=== PATIENT | female | born 1995 | race American Indian/Alaskan Native ===

== ENCOUNTER 2020-05-08 12:26 | Emergency (ER) | payer SELFPAY ==
--- NOTE | 2020-05-08 12:42 | Emergency Department Report ---
Blank Doc - Documentation Documentation: 24-year-old female that presents with worsening left sided abdominal pain and vomiting. Yesterday labs shows leukocytosis. This initial assessment/diagnostic orders/clinical plan/treatment(s) is/are subject to change based on patient's health status, clinical progression and re- assessment by fellow clinical providers in the ED. Further treatment and workup at subsequent clinical providers discretion. Patient/guardians urged not to elope from the ED as their condition may be serious if not clinically assessed and managed. Initial orders include: 1- Patient sent to MAIN ED for further evaluation and treatment 2- labs
[2020-05-08 13:12] LABS: Bilirubin,Urine SM (Negative); Blood,Urine NEG (Negative); Color,Urine Amber (Yellow); Mucus,Urine 3+ /HPF; RBC,Urine < 1.0 /HPF (0.0-6.0)
[2020-05-08 13:25] LABS: Ictotest,Urine Negative (Negative)
[2020-05-08 14:20] LABS: Hemoglobin 12.9 gm/dl (10.1-14.3); Mean Corpuscular HGB Conc 34 % (30-34); Mean Corpuscular Volume 71 fl (79-97); Platelet Count 238 K/mm3 (140-440); Red Blood Count 5.39 M/mm3 (3.65-5.03); Red Cell Distribution Width 18.4 % (13.2-15.2)
[2020-05-08 14:26] LABS: Alanine Aminotransferase 16 units/L (7-56); Albumin 4.9 g/dL (3.9-5); BUN/Creatinine Ratio 17; Blood Urea Nitrogen 12 mg/dL (7-17); Calcium 9.5 mg/dL (8.4-10.2); Hemolysis Index 6
[2020-05-08] MEDS ORDERED: ONDANSETRON 4 MG/2 ML INJ IV ONE (14:32)
[2020-05-08] MEDS ORDERED: D5W/0.9% NACL 1,000 ML IV SCH (15:00)
--- NOTE | 2020-05-08 15:47 | Emergency Department Report ---
ED General Adult HPI - General Chief complaint: Abdominal Pain Stated complaint: ABD PAIN PUI?: No Time Seen by Provider: 05/08/20 12:41 Source: patient, RN notes reviewed, old records reviewed Mode of arrival: Ambulatory Limitations: No Limitations - History of Present Illness Initial comments: The patient is a 24-year-old female. She has a history of recurrent undifferentiated abdominal pain. She occasionally consumes marijuana, and endorses secondhand exposure to marijuana. She was seen in this department yesterday with a complaint of abdominal pain. She was worked up and treated appropriately, and had a CT scan of the abdomen pelvis which was negative for acute pathology. She was discharged to follow-up, and indicated she was going to follow-up with a terra cotta setter, when her diffuse abdominal pain, nausea and vomiting became acutely symptomatic. Patient describes diffuse abdominal pain and cramping, nausea and vomiting. These episodes have been going on for a few years. To me, she denies abdominal surgeries. There is no complaint of headache, neck pain, chest pain, dysuria. She denies vaginal discharge and genital discomfort. In the emergency room, her symptoms were markedly improved with haloperidol, Valium, and Benadryl. At the moment, she is sleeping comfortably on her stretcher, and in no acute distress. -: Gradual Location: abdomen Severity scale (0 -10): 10 Quality: aching Consistency: intermittent Improves with: medication Worsens with: eating - Related Data Previous Rx's Medication Instructions Recorded Last Taken Type Ondansetron [Zofran Odt] 4 mg PO Q8HR #15 tab.rapdis 05/07/20 Unknown Rx Dicyclomine [Bentyl] 10 mg PO QID PRN #20 capsule 05/08/20 Unknown Rx Shelly Root [Shelly] 250 mg PO QID PRN #30 capsule 05/08/20 Unknown Rx Potassium Chloride 20 meq PO QDAY #15 packet 05/08/20 Unknown Rx Promethazine [Phenergan SUPPOS] 50 mg MO Q6H PRN #15 supp.rect 05/08/20 Unknown Rx Allergies Allergy/AdvReac Type Severity Reaction Status Date / Time metoclopramide [From Reglan] Allergy Unknown Verified 05/08/20 12:30 ED Review of Systems ROS: Stated complaint: ABD PAIN Other details as noted in HPI Constitutional: denies: fever, malaise Eyes: denies: eye discharge ENT: denies: epistaxis Respiratory: denies: cough Cardiovascular: denies: chest pain Gastrointestinal: abdominal pain, nausea, vomiting Genitourinary: denies: dysuria Musculoskeletal: as per HPI Skin: as per HPI Neurological: as per HPI Psychiatric: anxiety Hematological/Lymphatic: as per HPI ED Past Medical Hx - Past Medical History Hx Asthma: Yes Additional medical history: SPLENIC CYST - Surgical History Hx Cholecystectomy: Yes - Social History Smoking Status: Never Smoker Substance Use Type: None - Medications Home Medications: Home Medications Medication Instructions Recorded Confirmed Last Taken Type Ondansetron [Zofran Odt] 4 mg PO Q8HR #15 tab.rapdis 05/07/20 Unknown Rx Dicyclomine [Bentyl] 10 mg PO QID PRN #20 capsule 05/08/20 Unknown Rx Shelly Root [Shelly] 250 mg PO QID PRN #30 capsule 05/08/20 Unknown Rx Potassium Chloride 20 meq PO QDAY #15 packet 05/08/20 Unknown Rx Promethazine [Phenergan SUPPOS] 50 mg MO Q6H PRN #15 supp.rect 05/08/20 Unknown Rx ED Physical Exam - General Limitations: No Limitations General appearance: alert, anxious, in distress, obese - Head Head exam: Present: atraumatic, normocephalic - Eye Eye exam: Present: normal appearance, EOMI. Absent: nystagmus - ENT ENT exam: Present: normal exam, normal orophraynx, mucous membranes moist, normal external ear exam - Neck Neck exam: Present: normal inspection, full ROM. Absent: tenderness, meningismus - Respiratory Respiratory exam: Present: normal lung sounds bilaterally. Absent: respiratory distress - Cardiovascular Cardiovascular Exam: Present: regular rate, normal rhythm, normal heart sounds. Absent: bradycardia, tachycardia, irregular rhythm, systolic murmur, diastolic murmur, rubs, gallop - GI/Abdominal GI/Abdominal exam: Present: soft, normal bowel sounds. Absent: distended, tenderness, guarding, rebound, rigid, pulsatile mass - External exam: Present: normal external exam. Absent: erythema, swelling, le sions, lacerations, ecchymosis, bleeding Speculum exam: Present: normal speculum exam, other (Chaperoned by nurse Lily Mills). Absent: erythema, vaginal discharge, cervical discharge, vaginal bleeding, foreign body, tissue, laceration Bi-manual exam: Present: normal bi-manual exam. Absent: cervical motion tendernes, adnexal tenderness, adnexal mass - Extremities Exam Extremities exam: Present: normal inspection, full ROM, other (2+ pulses noted in the bilateral upper and lower extremities. There is no palpable cord. negative Homans sign. Muscular compartments are soft. The pelvis is stable.). Absent: pedal edema, calf tenderness - Back Exam Back exam: Present: normal inspection, full ROM. Absent: tenderness, CVA tenderness (R), CVA tenderness (L), paraspinal tenderness, vertebral tenderness - Neurological Exam Neurological exam: Present: alert, oriented X3, normal gait, other (No facial droop. Tongue midline. Extraocular movements intact bilaterally. Facial sensation intact to light touch in V1, V2, V3 distribution bilaterally. 5 and a 5 strength in 4 extremities. Sensation intact to light touch in 4 extremities.). Absent: motor sensory deficit - Psychiatric Psychiatric exam: Present: anxious - Skin Skin exam: Present: warm, dry, intact, normal color. Absent: rash ED Course Vital Signs 05/08/20 05/08/20 05/08/20 12:35 15:02 15:16 Temperature 98.2 F Pulse Rate 84 67 56 L Respiratory 22 13 14 Rate Blood Pressure 146/101 Blood Pressure 152/101 [Left] O2 Sat by Pulse 97 Oximetry 05/08/20 05/08/20 05/08/20 15:30 16:14 16:16 Temperature Pulse Rate 65 75 69 Respiratory 24 11 L 10 L Rate Blood Pressure 146/101 146/101 159/111 Blood Pressure [Left] O2 Sat by Pulse Oximetry 05/08/20 05/08/20 05/08/20 16:30 16:46 16:59 Temperature Pulse Rate 88 96 H Respiratory 28 H 24 18 Rate Blood Pressure 159/111 159/111 Blood Pressure [Left] O2 Sat by Pulse 99 100 100 Oximetry 05/08/20 05/08/20 05/08/20 17:00 17:16 17:30 Temperature Pulse Rate 67 73 66 Respiratory 20 23 31 H Rate Blood Pressure 149/113 149/113 149/113 Blood Pressure [Left] O2 Sat by Pulse 100 97 100 Oximetry 05/08/20 05/08/20 05/08/20 17:46 18:00 18:16 Temperature Pulse Rate 65 97 H Respiratory 8 L 16 Rate Blood Pressure 149/113 158/113 158/113 Blood Pressure [Left] O2 Sat by Pulse 100 100 99 Oximetry ED Medical Decision Making - Lab Data Result diagrams: 05/08/20 12:42 05/08/20 12:42 Vital Signs 05/08/20 05/08/20 12:35 15:02 Temperature 98.2 F Pulse Rate 84 67 Respiratory 22 13 Rate Blood Pressure 152/101 [Left] O2 Sat by Pulse 97 Oximetry Lab Results 05/08/20 05/08/20 05/08/20 Range/Units 12:42 12:42 12:48 WBC 12.9 H (4.5-11.0) K/mm3 RBC 5.39 H (3.65-5.03) M/mm3 Hgb 12.9 (10.1-14.3) gm/dl Hct 38.0 (30.3-42.9) % MCV 71 L (79-97) fl MCH 24 L (28-32) pg MCHC 34 (30-34) % RDW 18.4 H (13.2-15.2) % Plt Count 238 (140-440) K/mm3 Sodium 139 (137-145) mmol/L Potassium 3.2 L (3.6-5.0) mmol/L Chloride 99.2 (98-107) mmol/L Carbon Dioxide 23 (22-30) mmol/L Anion Gap 20 mmol/L BUN 12 (7-17) mg/dL Creatinine 0.7 (0.7-1.2) mg/dL Estimated GFR > 60 ml/min BUN/Creatinine Ratio 17 % Glucose 140 H (65-100) mg/dL Lactic Acid (0.7-2.0) mmol/L Calcium 9.5 (8.4-10.2) mg/dL Magnesium (1.7-2.3) mg/dL Total Bilirubin 2.00 H (0.1-1.2) mg/dL AST 22 (5-40) units/L ALT 16 (7-56) units/L Alkaline Phosphatase 64 (35-129) units/L Total Protein 7.9 (6.3-8.2) g/dL Albumin 4.9 (3.9-5) g/dL Albumin/Globulin Ratio 1.6 % Lipase 9 L (13-60) units/L Urine Color Fawn (Yellow) Urine Turbidity Clear (Clear) Urine pH 6.0 (5.0-7.0) Ur Specific [place] 1.041 H (1.003-1.030) Urine Protein 100 mg/dl (Negative) mg/dL Urine Glucose (UA) Neg (Negative) mg/dL Urine Ketones 20 (Negative) mg/dL Urine Blood Neg (Negative) Urine Nitrite Neg (Negative) Urine Bilirubin Sm (Negative) Urine Ictotest Negative (Negative) Urine Urobilinogen 4.0 (<2.0) mg/dL Ur Leukocyte Esterase Neg (Negative) Urine WBC (Auto) 3.0 (0.0-6.0) /HPF Urine RBC (Auto) < 1.0 (0.0-6.0) /HPF U Epithel Cells (Auto) 6.0 (0-13.0) /HPF Urine Mucus 3+ /HPF 05/08/20 05/08/20 Range/Units Unknown Unknown WBC (4.5-11.0) K/mm3 RBC (3.65-5.03) M/mm3 Hgb (10.1-14.3) gm/dl Hct (30.3-42.9) % MCV (79-97) fl MCH (28-32) pg MCHC (30-34) % RDW (13.2-15.2) % Plt Count (140-440) K/mm3 Sodium (137-145) mmol/L Potassium (3.6-5.0) mmol/L Chloride (98-107) mmol/L Carbon Dioxide (22-30) mmol/L Anion Gap mmol/L BUN (7-17) mg/dL Creatinine (0.7-1.2) mg/dL Estimated GFR ml/min BUN/Creatinine Ratio % Glucose (65-100) mg/dL Lactic Acid 1.70 (0.7-2.0) mmol/L Calcium (8.4-10.2) mg/dL Magnesium 2.00 (1.7-2.3) mg/dL Total Bilirubin (0.1-1.2) mg/dL AST (5-40) units/L ALT (7-56) units/L Alkaline Phosphatase (35-129) units/L Total Protein (6.3-8.2) g/dL Albumin (3.9-5) g/dL Albumin/Globulin Ratio % Lipase (13-60) units/L Urine Color (Yellow) Urine Turbidity (Clear) Urine pH (5.0-7.0) Ur Specific [place] (1.003-1.030) Urine Protein (Negative) mg/dL Urine Glucose (UA) (Negative) mg/dL Urine Ketones (Negative) mg/dL Urine Blood (Negative) Urine Nitrite (Negative) Urine Bilirubin (Negative) Urine Ictotest (Negative) Urine Urobilinogen (<2.0) mg/dL Ur Leukocyte Esterase (Negative) Urine WBC (Auto) (0.0-6.0) /HPF Urine RBC (Auto) (0.0-6.0) /HPF U Epithel Cells (Auto) (0-13.0) /HPF Urine Mucus /HPF - EKG Data -: EKG Interpreted by In EKG shows normal: sinus rhythm Rate: normal - EKG Data When compared to previous EKG there are: previous EKG unavailable 05/08/20 19:01 Sinus rhythm, 67 bpm, left axis deviation, left anterior fascicular block, high left ventricular voltage, abnormal EKG, not a STEMI - Radiology Data Radiology results: report reviewed, image reviewed Print Report Referring Physician: MIGUELINA BENNETT Patient Name: SUSI ABDI Date of : 1995 Sex: Female Report Date: 2020-05-07 Report Status: [place] [address] Cat Scan Report Signed Patient: SUSI ABDI MR#: [id number] : 1995 Acct:[id number] Age/Sex: 24 / F ADM Date: 05/07/20 Loc: ED Attending Dr: Ordering Physician: GUILLERMO AMATO Date of Service: 04/28 Procedure(s): CT abdomen pelvis w con Accession Number(s): [id number] cc: GUILLERMO AMATO CT ABDOMEN AND PELVIS WITH CONTRAST INDICATION / CLINICAL INFORMATION: MAIN: Left mid abdominal pain N/V/D Omnipaque 300 100ml. TECHNIQUE: Axial CT images were obtained through the abdomen and pelvis after 100 cc Omnipaque 300 milligrams percent IV contrast. All CT scans at this location are performed using CT dose reduction for ALARA by means of automated exposure control. COMPARISON: None available. FINDINGS: LOWER CHEST: No significant abnormality. LIVER: No significant abnormality. GALLBLADDER: Previous cholecystectomy BILE DUCTS: No significant abnormality. PANCREAS: No significant abnormality. SPLEEN: There is a 2 cm low density lesion in the medial aspect of the spleen, probably representing a small cyst. ADRENALS: No significant abnormality. RIGHT KIDNEY and URETER: No significant abnormality. LEFT KIDNEY and URETER: No significant abnormality. STOMACH and SMALL BOWEL: No significant abnormality. COLON: No significant abnormality. APPENDIX: No significant abnormality. PERITONEUM: Very small ventral wall defect. No free fluid. No free air. No fluid collection. LYMPH NODES: No significant adenopathy. AORTA and ARTERIES: No significant abnormality. IVC and VEINS: No significant abnormality. URINARY BLADDER: No significant abnormality. REPRODUCTIVE ORGANS: No significant abnormality. Involuting left ovarian cyst ADDITIONAL FINDINGS: None. SKELETAL SYSTEM: No significant abnormality. IMPRESSION: 1. Low density lesion within the spleen, probable splenic cyst recommend continued surveillance 2. Previous cholecystectomy Signer Name: German Perry MD Signed: 05/07/2020 3:20 PM Workstation Name: [id number] Transcribed By: WG Dictated By: German Perry MD Electronically Authenticated By: German Perry MD Signed Date/Time: 05/07/20 1520 DD/ 1515 TD/TT: - Medical Decision Making Differential diagnosis, including but not limited to: Cannabinoid hyperemesis syndrome, cyclic vomiting syndrome Assessment and plan: 24-year-old female presenting with recurrent nausea and vomiting, alleviated by haloperidol, Benadryl, and Ativan. She is afebrile, with reassuring vital signs, with a soft and benign abdominal examination. Her vomiting has resolved at this time. Her gynecologic examination is benign. She had a CT scan of the abdomen pelvis yesterday which was negative for acute pathology. Suspect cyclic vomiting syndrome with possible superimposed cannabinoid hyperemesis syndrome. Advised patient to discontinue marijuana consumption and secondhand exposure. She can be discharged with as needed nausea medicine, she will need to follow-up with outpatient gastroenterology, we will also discharge her with potassium supplementation. Critical care attestation.: If time is entered above; I have spent that time in minutes in the direct care of this critically ill patient, excluding procedure time. ED Disposition Clinical Impression: History of abdominal pain, History of nausea and vomiting, Hypokalemia Disposition: DC-01 TO HOME OR SELFCARE Is pt being admited?: No Does the pt Need Aspirin: No Condition: Stable Additional Instructions: Avoid consumption/minimize consumption of Motrin, ibuprofen, Naprosyn, Aleve, heavy, spicy foods. Suspect that patient is experiencing cannabinoid hyperemesis syndrome. Recommend that patient avoid all exposure and consumption of marijuana, and marijuana related products. Patient is most likely experiencing adverse events from marijuana exposure and/or utilization. Marijuana products may remain in body tissues for up to 3 to 6 weeks, so it may take a few weeks for patient's symptoms to resolve. Use the Zofran prescription that was dispensed to the patient yesterday as needed for nausea and vomiting, patient may also use shelly tablets prescribed today for nausea and vomiting, and for nausea and vomiting that is intractable to the aforementioned medications, patient may use the Phenergan suppositories. Patient may take [id number] Tylenol as needed for pain, and may also purchase hot sauce or tobacco sauce from any food or supermarket, and apply hot sauce or Tabasco sauce to her anterior abdominal wall, which may also assist with symptom and pain control. Take the potassium supplementation as directed, and follow-up with an outpatient primary care doctor or terra cotta setter within the next month. Return to the emergency room right away with new pain, worsening pain, migration of pain, projectile vomiting, change in mental status, confusion, inability to tolerate liquid feeds, new, worsened or different symptoms not present on the initial emergency room evaluation. Referrals: LAVELLE MATHEWS MD [Staff Physician] - 3-5 Days AMRIK VERNON MD [Staff Physician] - 3-5 Days
[2020-05-08] MEDS ORDERED: HALOPERIDOL LACTATE 5 MG/1 ML INJ IM STA (15:53)
[2020-05-08] MEDS ORDERED: diazePAM 10 MG/2 ML SYRINGE IV ONE (15:53)
[2020-05-08] MEDS ORDERED: diphenhydrAMINE 50 MG/ML VIAL IV ONE (15:53)
[2020-05-08] MEDS ORDERED: KETOROLAC 30 MG/1 ML INJ IV ONE (15:53)
[2020-05-08] MEDS ORDERED: POTASSIUM CHLORIDE ER 20 MEQ TAB PO ONE ×2 (15:56→19:15)
[2020-05-08 16:10] LABS: Amphetamine Screen,Urine PRESUMPTIVE NEGATIVE; Benzodiazepines Screen,Urine PRESUMPTIVE NEGATIVE; Cocaine Screen,Urine PRESUMPTIVE NEGATIVE; Methadone Screen,Urine PRESUMPTIVE NEGATIVE
[2020-05-08 16:22] LABS: HCG Qualitative,Urine Negative (Negative)
[2020-05-08 16:32] LABS: Cannabinoid Screen,Urine PRESUMPTIVE POSITIVE; Opiate Screen,Urine PRESUMPTIVE POSITIVE
[2020-05-08 16:36] LABS: Anisocytosis 3+; Basophils % (Manual) 0 % (0.0-1.8); Eosinophils % (Manual) 0 % (0.0-4.3); Hypochromasia 2+; Large Platelets 1+; Ovalocytes 1+; Spherocytes 1+; Tear Drop Cells 1+; Total Cells Counted 100
[2020-05-08] MEDS ORDERED: PROMETHAZINE 25 MG TAB PO ONE (18:11)
[2020-05-08 18:25] VITALS: BP 158/113
[2020-05-08] MEDS: POTASSIUM CHLORIDE 10 MEQ 10 MEQ/100 ML BAG IV SCH (19:47)
== END 2020-05-08 19:32 | disposition home or self-care (01) ==
LOC: ED 12:26
DX: E87.6 Hypokalemia (principal); R11.2 Nausea with vomiting, unspecified; R10.9 Unspecified abdominal pain; I10 Essential (primary) hypertension; J45.909 Unspecified asthma, uncomplicated; Z90.49 Acquired absence of other specified parts of digestive tract; Z79.899 Other long term (current) drug therapy; Z88.8 Allergy status to other drugs, medicaments and biological substances
CPT/HCPCS: 36415; 80053; 80307; 81001; 81025; 82140; 83690; 83735; 85007; 85025; 87040; 87210; 87591; 93005; 96372; 96374; 96375; 99284; J1200; J1630; J1885; J2405; J3360; J7042; Q0169; J3480